=== PATIENT | female | born 2005 | race Caucasian/White ===

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

== ENCOUNTER 2024-09-11 19:42 | Emergency (ER) | payer OTHER, SELFPAY ==
[2024-09-11 20:04] VITALS: BP 140/93; PULSE 110; RESP 18; TEMP 37.2; O2SAT 97; BMI 33.3
[2024-09-11] MEDS: ACETAMINOPHEN 325 MG TABLET 650 MG PO (20:14)
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
[2024-09-12] MEDS: AMOXICILLIN/CLAV 875/125 MG 1 TAB PO (01:34)
[2024-09-12] MEDS: IBUPROFEN 400 MG TABLET 600 MG PO (01:34)
[2024-09-12] MEDS: ONDANSETRON 4 MG ODT PREPACK 1 BOTTLE MISC (01:35)
[2024-09-12] MEDS: CIPROFLOXACIN/DEXAMETH OTIC SUSP 4 DROPS EAR-RIGHT (01:35)
[2024-09-12 01:37] VITALS: BP 100/60; PULSE 78; RESP 15; O2SAT 98
== END 2024-09-12 01:39 | disposition home or self-care (01) ==
PROVIDERS: Emergency Provider Student in an Organized Health Care Education/Training Program; PCP Family Medicine
DX: H66.91 Otitis media, unspecified, right ear (principal); H60.501 Unspecified acute noninfective otitis externa, right ear
CPT/HCPCS: 99283

== ENCOUNTER → 2024-09-19 13:59 | Outpatient (CLI) | payer OTHER, SELFPAY ==
[2024-09-19 15:04] LABS: Add Manual Diff / Slide Review NO; Hematocrit 39.3 % (36-46); Hemoglobin 13.4 g/dL (12.0-16.0); Lymphocytes Absolute Auto 3100 /uL (1100-4500); Mean Corpuscular HGB Conc 34.0 % (30-36); Mean Corpuscular Hemoglobin 30.0 PG (26-34); Mean Corpuscular Volume 88.1 fL (80-100); Platelet Count 264 X10^3/uL (150-400)
[2024-09-19 15:14] LABS: Hemoglobin A1C% w Est Avg Glu 5.0 % (4.0-6.0)
[2024-09-19 15:56] LABS: TSH w/ Reflex to FT4 1.49 uIU/mL (0.47-4.68)
[2024-09-19 16:00] LABS: Alanine Aminotransferase 15 IU/L (<35); Albumin 4.0 g/dL (3.5-5.0); Albumin Globulin Ratio 1.5 (1.0-2.8); Alkaline Phosphatase 58 U/L (38-126); Blood Urea Nitrogen 9 mg/dL (7-17); Calcium 9.5 mg/dL (8.4-10.2); Carbon Dioxide 22 mmol/L (22-32); Chloride 106 mmol/L (98-107); Estimated Glomerular Filt Rate > 60 mL/min (>60); Globulin 2.6 g/dL (1.7-4.1); Glucose 122 mg/dL (70-99); HEMOLYSIS < 15 (0-50); Potassium 4.1 mmol/L (3.4-5.1); Sodium 138 mmol/L (137-145); Total Protein 6.6 g/dL (6.3-8.2)
[2024-09-21 21:07] LABS: Deamidated Gliadin Ab IgA 4 units (0-19); Deamidated Gliadin Ab IgG 1 units (0-19); Immunoglobulin A,Qn 129 mg/dL (87-352)
== END ==
PROVIDERS: PCP Family Medicine; Referring Provider Family Medicine; Visit Provider Family Medicine
DX: R63.5 Abnormal weight gain (principal); K52.9 Noninfective gastroenteritis and colitis, unspecified; Z68.42 Body mass index [BMI] 45.0-49.9, adult; Z86.59 Personal history of other mental and behavioral disorders
CPT/HCPCS: 36415; 80053; 82784; 83036; 83516; 84443; 85025

== ENCOUNTER → 2024-12-06 13:30 | Outpatient (CLI) | payer OTHER, SELFPAY ==
[2024-12-06 14:25] LABS: Add Manual Diff / Slide Review NO; Hematocrit 40.4 % (36-46); Hemoglobin 13.6 g/dL (12.0-16.0); Lymphocytes Absolute Auto 3400 /uL (1100-4500); Mean Corpuscular HGB Conc 33.8 % (30-36); Mean Corpuscular Hemoglobin 29.1 PG (26-34); Mean Corpuscular Volume 86.1 fL (80-100); Platelet Count 286 X10^3/uL (150-400)
[2024-12-06 20:33] LABS: Alanine Aminotransferase 29 IU/L (<35); Albumin 4.5 g/dL (3.5-5.0); Albumin Globulin Ratio 1.7 (1.0-2.8); Alkaline Phosphatase 61 U/L (38-126); Blood Urea Nitrogen 10 mg/dL (7-17); Calcium 9.8 mg/dL (8.4-10.2); Carbon Dioxide 20 mmol/L (22-32); Chloride 106 mmol/L (98-107); Estimated Glomerular Filt Rate > 60 mL/min (>60); Globulin 2.6 g/dL (1.7-4.1); Glucose 105 mg/dL (70-99); HEMOLYSIS < 15 (0-50); Potassium 4.6 mmol/L (3.4-5.1); Sodium 137 mmol/L (137-145); Total Protein 7.1 g/dL (6.3-8.2)
== END ==
PROVIDERS: PCP Family Medicine; Referring Provider Family Medicine; Visit Provider Physician Assistant
DX: K52.9 Noninfective gastroenteritis and colitis, unspecified (principal)
CPT/HCPCS: 36415; 80053; 85025

== ENCOUNTER → 2024-12-10 10:15 | Outpatient (CLI) | payer OTHER, SELFPAY ==
[2024-12-10 12:22] LABS: Clostridium Difficile Tox PCR Negative for C. diff (Negative)
[2024-12-12 08:10] LABS: Salmonella/Shigella Screen Final report (.)
[2024-12-12 17:09] LABS: E coli Shiga Toxin EIA Negative (Negative)
== END ==
PROVIDERS: PCP Family Medicine; Referring Provider Family Medicine; Visit Provider Physician Assistant
DX: K52.9 Noninfective gastroenteritis and colitis, unspecified (principal)
CPT/HCPCS: 82274; 87045; 87177; 87493

== ENCOUNTER → 2025-01-17 12:08 | Outpatient (CLI) | payer OTHER, SELFPAY ==
[2025-01-17 13:01] LABS: Cholesterol 139 mg/dL (140-199); HDL Cholesterol 36 mg/dL (40-60); Triglycerides 194 mg/dL (35-150)
== END ==
PROVIDERS: PCP Family Medicine; Referring Provider Student in an Organized Health Care Education/Training Program; Visit Provider Student in an Organized Health Care Education/Training Program
DX: Z79.899 Other long term (current) drug therapy (principal)
CPT/HCPCS: 36415; 80061